=== PATIENT | female | born 1975 | race Caucasian/White ===

== ENCOUNTER 2017-03-01 22:09 | Emergency (ER) | payer MEDICAID ==
[~2017-03-01] VITALS: Ht 152.4 cm; Wt 79.8 kg
[~2017-03-01 22:09] MED LIST: ACTOS45 MG PO; GLUCOPHAGE1000 MG PO; GLUCOTROL10 MG PO
[2017-03-01 22:28] VITALS: BP 131/78
--- NOTE | 2017-03-01 23:21 | NUR ---
PATIENT LEFT WITHOUT BEING SEEN BY DR. LEMUS. NO FURTHER CARE PROVIDED FOR PATIENT.
== END 2017-03-01 23:21 | disposition left against medical advice (07) ==
LOC: MED 22:09
DX: R05 Cough (principal); R09.81 Nasal congestion; Z53.21 Procedure and treatment not carried out due to patient leaving prior to being seen by health care provider

== ENCOUNTER 2023-05-25 23:35 | Emergency (ER) | payer MEDICAID ==
[~2023-05-25] VITALS: Ht 152.4 cm; Wt 54.4 kg
[~2023-05-25 23:35] MED LIST changes: -ACTOS45 MG PO; +GLIP10TA3 PO; -GLUCOPHAGE1000 MG PO; -GLUCOTROL10 MG PO; +METF-1274 PO; +PIOG45TA39 PO
[2023-05-25 23:40] VITALS: BP 157/82; PULSE 81; RESP 18; TEMP 97.5; O2SAT 99
[2023-05-26 00:20] VITALS: O2SAT 98
[2023-05-26 00:34] LABS: BASOPHILS # (AUTO) 0.1 K/uL (0.00-0.22); EOSINOPHILS # (AUTO) 0.2 K/uL (0-0.4); EOSINOPHILS % (AUTO) 1.9 % (0.0-4.0); HEMATOCRIT 38.8 % (36-48); HEMOGLOBIN 13.2 g/dL (12.0-16.0); LYMPHOCYTES # (AUTO) 3.5 K/uL (2.5-16.5); LYMPHOCYTES % (AUTO) 35.8 % (20.5-51.1); MEAN CORPUSCULAR HEMOGLOBIN 29 pg (27-31); MEAN CORPUSCULAR HGB CONC 34 g/dL (33-37); MEAN CORPUSCULAR VOLUME 84.6 fL (80-94); MONOCYTES # (AUTO) 0.5 K/uL (0.8-1.0); MONOCYTES % (AUTO) 4.7 % (1.7-9.3); NEUTROPHILS # (AUTO) 5.5 K/uL (1.8-7.7); NEUTROPHILS % (AUTO) 56.6 % (42.2-75.2); PLATELET COUNT (AUTO) 442 K/uL (140-450); RED BLOOD CELL COUNT(AUTO) 4.59 MIL/uL (4.20-5.40); RED CELL DISTRIBUTION WIDTH 13.2 % (11.6-13.7); WHITE BLOOD COUNT (AUTO) 9.7 K/uL (4.8-10.8)
[2023-05-26 00:54] LABS: ALANINE AMINOTRANSFERASE 33 U/L (12-78); ALBUMIN 3.5 g/dL (3.4-5.0); ALKALINE PHOSPHATASE 93 U/L (50-136); ANION GAP 14.3 (8-16); ASPARTATE AMINOTRANSFERASE 25 U/L (15-37); CALCIUM 8.5 mg/dL (8.5-10.1); CARBON DIOXIDE 25.4 mmol/L (21-32); CHLORIDE 103 mmol/L (98-107); CREATININE 0.7 mg/dL (0.6-1.3); GFR ARICAN-AMERICAN 116 mL/min (>90); GFR NON ARICAN-AMERICAN 96 mL/min (>90); GLUCOSE 201 mg/dL (74-106); POTASSIUM 3.7 mmol/L (3.5-5.1); SODIUM SERUM 139 mmol/L (136-145); TOTAL BILIRUBIN 0.3 mg/dL (0.0-1.0); TOTAL PROTEIN, SERUM 7.3 g/dL (6.4-8.2); UREA NITROGEN, BLOOD 8 mg/dL (7-18)
[2023-05-26 02:49] VITALS: O2SAT 98
[2023-05-26 03:05] VITALS: BP 118/60; PULSE 70; RESP 24; O2SAT 99
== END 2023-05-26 03:04 | disposition home or self-care (01) ==
LOC: MED 23:35
DX: F41.0 Panic disorder [episodic paroxysmal anxiety] (principal); R07.89 Other chest pain; E11.9 Type 2 diabetes mellitus without complications; I10 Essential (primary) hypertension; Z79.4 Long term (current) use of insulin; Z79.899 Other long term (current) drug therapy
CPT/HCPCS: 36415; 71045; 80053; 84484; 85025; 93005; 99285; Q0092